=== PATIENT | male | born 1985 | race African-American/Black ===

== ENCOUNTER 2024-10-11 14:29 | Emergency (ER) | payer BC, OTHER ==
[~2024-10-11] VITALS: Ht 177.8 cm; Wt 121.0 kg
[2024-10-11 15:03] VITALS: O2SAT 98
[2024-10-11] MEDS: DEXAMETHASONE 10 MG/ML VIAL PO ONE (16:58)
[2024-10-11 17:09] LABS: BASOPHILS % 0.6 % (0.0-2.0); EOSINOPHILS % 9.3 % (0.0-5.0); HEMATOCRIT. 49.6 % (42.0-52.0); HEMOGLOBIN. 16.2 g/dL (14.0-18.0); LYMPHOCYTES % 15.3 % (20.0-50.0); MEAN CORPUSCULAR HEMOGLOBIN 30.5 pg (28.0-32.0); MEAN CORPUSCULAR HGB CONC 32.7 g/dL (31.0-37.0); MEAN CORPUSCULAR VOLUME 93.1 fL (80.0-94.0); MEAN PLATELET VOLUME 8.4 fl (7.4-10.4); MONOCYTES % 12.1 % (2.0-8.0); NEUTROPHILS % 62.7 % (40.0-76.0); PLATELET 379 x1000/uL (130-400); RED BLOOD CELL COUNT 5.33 mill/uL (4.7-6.1); RED CELL DISTRIBUTION WIDTH 14.2 % (11.6-14.6); WHITE BLOOD COUNT 11.5 x1000/uL (4.5-11.0)
[2024-10-11 17:12] LABS: CHLORIDE 102 mEq/L (98-107); POTASSIUM 3.9 mEq/L (3.5-5.1); SODIUM 136 mEq/L (136-145)
[2024-10-11 17:13] LABS: CALCIUM 9.7 mg/dL (8.7-10.4); CARBON DIOXIDE 28 mEq/L (21-32)
[2024-10-11 17:18] LABS: CREATININE 1.3 mg/dL (0.6-1.3); GLUCOSE 111 mg/dL (70-105); UREA NITROGEN BLOOD 13 mg/dL (9-23)
[2024-10-11] MEDS: AMPICILLIN SOD/SULBACTAM NA 3 G in SODIUM CHLORIDE 0.9% 100 ML IV STA (17:30)
[2024-10-11] MEDS ORDERED: AMOX1TAB16 MT (18:10)
[2024-10-11] MEDS ORDERED: IBUP-2029 MT (18:10)
[2024-10-11 18:31] VITALS: BP 114/69; PULSE 79; RESP 16; TEMP 36.8; O2SAT 100
[2024-10-11] MEDS ORDERED: IOHEXOL-300 100 ML BOTTLE ONE (23:50)
== END 2024-10-11 18:33 | disposition home or self-care (01) ==
LOC: ER 14:29
DX: J03.00 Acute streptococcal tonsillitis, unspecified (principal); E11.9 Type 2 diabetes mellitus without complications; Z79.52 Long term (current) use of systemic steroids; Z98.890 Other specified postprocedural states; Z79.899 Other long term (current) drug therapy
CPT/HCPCS: 99285; 96374; 70491; 80048; 87430; 85025; 87040; 36415; 84145; 70360; Q9967; J0295; J1100; J7050